=== PATIENT | male | born 1960 | race African-American/Black ===

== ENCOUNTER 2021-08-30 13:34 | Outpatient (CLI) | payer OTHER ==
[2021-08-31 00:09] LABS: SARS-CoV-2 PCR by NAA Not Detected (NotDetected)
== END 2021-08-30 13:35 | disposition home or self-care (01) ==
LOC: CSHLAB 13:34
PROVIDERS: ATTEND Internal Medicine Gastroenterology
DX: Z01.812 Encounter for preprocedural laboratory examination (principal); Z20.822 Contact with and (suspected) exposure to COVID-19; Z12.11 Encounter for screening for malignant neoplasm of colon
CPT/HCPCS: U0003; U0005

== ENCOUNTER 2021-09-02 06:35 | Day surgery (SDC) | payer OTHER ==
[2021-09-01 09:43] VITALS: BMI 39.1
[2021-09-02] MEDS ORDERED: Lidocaine 1% MPF 2 ML VIAL ONE (07:00)
[2021-09-02] MEDS ORDERED: PROPOFOL 40 ML ONE (08:26)
[2021-09-02] MEDS ORDERED: Lidocaine 1% PF 5 ML VIAL ONE (08:26)
== END 2021-09-02 09:31 | disposition home or self-care (01) ==
LOC: CSHSDC 06:35
PROVIDERS: ATTEND Internal Medicine Gastroenterology
PROC: 0DBN8ZZ Excision of Sigmoid Colon, Via Natural or Artificial Opening Endoscopic (ICD-10-PCS; principal; 2021-09-02)
DX: Z12.11 Encounter for screening for malignant neoplasm of colon (principal); D12.5 Benign neoplasm of sigmoid colon; K57.30 Diverticulosis of large intestine without perforation or abscess without bleeding; K64.9 Unspecified hemorrhoids; Z79.899 Other long term (current) drug therapy; I10 Essential (primary) hypertension; E11.9 Type 2 diabetes mellitus without complications; E78.5 Hyperlipidemia, unspecified
CPT/HCPCS: 88305; J2704

== ENCOUNTER 2023-09-04 08:19 | Outpatient (CLI) | payer MEDICARE | END 2023-09-04 08:20 | disposition home or self-care (01) | LOC: CSHMRI 08:19 | PROVIDERS: ATTEND Urology | DX: R97.20 Elevated prostate specific antigen [PSA] (principal) | CPT/HCPCS: 72197 ==